=== PATIENT | male | born 2000 | race Caucasian/White ===

== ENCOUNTER 2021-09-27 22:12 | Emergency (ER) | payer BC ==
[2021-09-27 23:36] LABS: ANION GAP 12.5 meq/L (7-15); CHLORIDE,CL 105 mmol/L (98-107); SODIUM,NA 141 mmol/L (136-145)
[2021-09-27] MEDS ORDERED: Ketorolac 30 MG/ML SDV IM ONE (23:46)
[2021-09-28] MEDS ORDERED: Acetaminophen 500 MG Tab PO ONE (00:18)
== END 2021-09-28 00:30 | disposition home or self-care (01) ==
LOC: LL.ED 22:12 → EDBD 22:12 → LL.ED 09-28 00:30
DX: R04.0 Epistaxis (principal); Z72.0 Tobacco use
CPT/HCPCS: 30903; 36415; 80053; 85025; 96372; 99283; A9270; J1885